=== PATIENT | male | born 1965 | race Caucasian/White ===

== ENCOUNTER 2024-05-12 14:21 | Emergency (ER) | payer BC ==
[~2024-05-12] VITALS: Ht 198.1 cm; Wt 90.9 kg
[2024-05-12 14:37] VITALS: TEMP 97.6
[2024-05-12 15:07] LABS: EOSINOPHILS # (AUTO) 0.2 X10'3 (0-0.9); EOSINOPHILS % (AUTO) 3.5 % (0-6); HEMOGLOBIN 13.1 g/dl (14.0-17.9); WHITE BLOOD COUNT 5.2 X10'3 (4.5-11.0)
[2024-05-12 15:09] LABS: BASOPHILS # (AUTO) 0.1 X10'3 (0-0.2); BASOPHILS % (AUTO) 1.3 % (0-1); HEMATOCRIT 39.9 % (42.0-52.0); LYMPHOCYTES # (AUTO) 1.5 X10'3 (1.1-4.8); LYMPHOCYTES % (AUTO) 29.3 % (21-51); MEAN CORPUSCULAR HEMOGLOBIN 29.1 PG (27.0-31.0); MEAN CORPUSCULAR HGB CONC 32.8 g/dL (33.0-36.5); MEAN CORPUSCULAR VOLUME 88.6 FL (78-98); MEAN PLATELET VOLUME 7.7 FL (7.4-10.4); MONOCYTES # (AUTO) 0.6 X10'3 (0-0.9); MONOCYTES % (AUTO) 10.8 % (2-12); NEUTROPHILS # (AUTO) 2.9 X10'3 (1.8-7.7); NEUTROPHILS % (AUTO) 55.1 % (42-75); PLATELET COUNT 240 X10'3 (140-440); RED BLOOD COUNT 4.51 X10'6 (4.70-6.10)
[2024-05-12] MEDS ORDERED: ketorolac trometh. 30mg/ml inj. IV ONE (15:10)
[2024-05-12 15:13] LABS: CLARITY,URINE TURBID (Clear); COLOR,URINE BROWN (Yellow); UA COLLECTION TYPE CLN CATCH MIDSTREAM
[2024-05-12 15:16] LABS: BACTERIA,URINE FEW /HPF (Neg); MUCUS STRANDS NONE SEEN /LPF (Neg); RBC,URINE TNTC /HPF (0-2); SQUAMOUS EPITHELIAL CELL,UR NONE SEEN /LPF (FEW); WBC,URINE 0-4 /HPF (0-4)
[2024-05-12 15:16] LABS: ALANINE AMINOTRANSFERASE 24 U/L (12-78); ALBUMIN 3.9 G/DL (3.4-5.0); ALBUMIN/GLOBULIN RATIO 1.1 (1.1-1.5); ALKALINE PHOSPHATASE 98 IU/L (46-116); ANION GAP 7 (8-16); ASPARTATE AMINO TRANSFERASE 19 U/L (10-37); BILIRUBIN,TOTAL 0.6 MG/DL (0.1-1.0); BLOOD UREA NITROGEN 20 MG/DL (7-18); BUN/CREATININE RATIO 18.3 (10.0-20.0); CALCIUM 8.7 MG/DL (8.5-10.1); CHLORIDE 107 MMOL/L (99-107); CREATININE 1.09 MG/DL (0.60-1.10); GLUCOSE 92 MG/DL (70-104); LIPASE 47 U/L (16-77); POTASSIUM 4.1 MMOL/L (3.5-5.1); SODIUM 140 MMOL/L (135-145); TOTAL CARBON DIOXIDE 26.3 MMOL/L (24-32); TOTAL PROTEIN 7.5 G/DL (6.4-8.2); eCRCL 93 ML/MIN; eGFR 69 ML/MIN
[2024-05-12] MEDS: ondansetron/PF 4mg/2ml inj IV ONE (16:11)
[2024-05-12] MEDS: ketorolac tromethamine 15mg/ml inj. IV ONE (16:12)
[2024-05-12] MEDS: normal saline 1000ML IV soln IVB ONE (16:12)
[2024-05-12] MEDS: fentaNYL/PF 50MCG/1 ML 2ML syringe IV ONE (16:12)
[2024-05-12] MEDS ORDERED: ONDA-243 PO (17:00)
[2024-05-12] MEDS ORDERED: HYDR-3973 PO (17:00)
[2024-05-12] MEDS ORDERED: FLO0.4C PO (17:00)
[2024-05-12 17:31] VITALS: BP 135/85; PULSE 62; RESP 16; O2SAT 97
== END 2024-05-12 17:33 | disposition home or self-care (01) ==
LOC: ER 14:22
DX: N20.0 Calculus of kidney (principal); R31.9 Hematuria, unspecified; M54.50 Low back pain, unspecified; Z79.899 Other long term (current) drug therapy
CPT/HCPCS: 36415; 74176; 80053; 81001; 83690; 85025; 96361; 96374; 96375; 99285; J1885; J2405; J3010; J7030